=== PATIENT | female | born 1990 | race Caucasian/White ===

== ENCOUNTER 2016-12-02 13:43 | Emergency (ER) | payer OTHER ==
--- NOTE | ~2016-12-02 | CR63 ---
[facility] A Service of [facility] RADIOLOGY TEXT RESULTS PATIENT: VICENTE MADISON LOCATION: SED : [birth year] UNIT #: [id number] AGE: [address]: SHEILA ALEXANDER SEX: F ORDER DR: [id number] [address] [address] [id number] E MR#: [id number] #: [id number] NAME: VICENTE MADISON : 1990 SEX: F STUDY DATE/TIME: 12/02/2016 13:56 UNIT: SED ROOM: STUDY DESCRIPTION: CR Chest 2 View Ordering Physician: Danny Miranda M.D. Primary Care Physician: Sheri Hendrickson M.D. MEDICAL IMAGING REPORT This report is preliminary unless electronic signature is present. EXAM PA and lateral chest radiograph HISTORY Left-sided chest pain. This has been present over the left clavicle 5-6 months. No known injury. FINDINGS PA and lateral examination of the chest upright shows a good expansion of the parenchyma with a normal distribution of the pulmonary vascularity. There is no indication of congestion, effusion, infiltrate, tumor, or nodular density. The pleural reflections and diaphragmatic contours are normal. The cardiac silhouette and mediastinal anatomy is within normal limits. IMPRESSION Normal chest. Dictated by... Reyna Shaw M.D. THIS IS AN ELECTRONICALLY VERIFIED REPORT Reyna Shaw M.D. at 12/03/2016 10:48 AM AFF/pcl TD: 12/02/2016 18:29 JOB #: [id number] MEDICAL IMAGING REPORT
[2016-12-02 12:45] LABS: INFLUENZA A NEG (NEG); INFLUENZA B NEG (NEG)
[~2016-12-02 13:43] MED LIST: ABILIFY; ATARAX PO; BACTRIM DS TABL1 TA1 PO; BENZONATATE PO; CIPRO PO; FLEXERIL PO; IBUPROFEN800 MG PO; KEFLEX; KEFLEX500 M1 PO; LORTAB ELIXIR15 ML PO; MOTRIN IB200 M1 PO; NAPROXEN PO; NO MEDICATIONS; PEN-VEE K PO; PHENERGAN PO; PREDNISONE PO; PRENATAL1 TA1 PO; PYRIDIUM PO; ROBITUSSIN A-C10 ML PO; TRIAMCINOLONE A15 G6 EXT; VALTREX PO; VOLTAREN75 MG PO
== END 2016-12-02 15:22 | disposition home or self-care (01) ==
LOC: SED 13:43
PROVIDERS: Nurse Practitioner
DX: J02.9 Acute pharyngitis, unspecified (principal); F17.200 Nicotine dependence, unspecified, uncomplicated
CPT/HCPCS: 71020; 86308; 87651; 87804; 94640; 96372; 99284; J0561